=== PATIENT | female | born 1950 | race Caucasian/White ===

== ENCOUNTER 2017-09-10 10:32 | Emergency (ER) | payer OTHER ==
[2017-09-10 11:39] VITALS: BP 173/86
--- NOTE | 2017-09-10 12:01 | UC ---
Skin Complaint HPI - HPI Summary HPI Summary: 4 days of rash small vesicles on right lower leg and both arms---itchy, no evidence of infection - History of Current Complaint Chief Complaint: UCRash Time Seen by Provider: 09/10/17 11:44 Stated Complaint: SKIN COMPLAINT Hx Obtained From: Patient ?: No Onset/Duration: Sudden Onset, Lasting Days - 4 Timing: Constant Pain Intensity: 3 Pain Scale Used: 0-10 Numeric Location: Discrete Character: Pruritus, Redness Aggravating Factor(s): Nothing Alleviating Factor(s): Nothing Associated Signs & Symptoms: Positive: Rash Related History: Possible Reaction to: Environmental Exposure - Allergy/Home Medications Allergies/Adverse Reactions: Allergies Allergy/AdvReac Type Severity Reaction Status Date / Time No Known Allergies Allergy Verified 09/10/17 11:40 Review of Systems Constitutional: Negative Skin: Rash Eyes: Negative ENT: Negative Respiratory: Negative Cardiovascular: Negative Gastrointestinal: Negative Genitourinary: Negative Motor: Negative Neurovascular: Negative Musculoskeletal: Negative Neurological: Negative Psychological: Negative Is Patient Immunocompromised?: No All Other Systems Reviewed And Are Negative: Yes PMH/Surg Hx/FS Hx/Imm Hx Previously Healthy: Yes - Surgical History Surgical History: Yes Surgery Procedure, Year, and Place: C-sections x 2. Kidney stone - Family History Known Family History: Positive: None - Social History Occupation: Retired Lives: With Family Alcohol Use: Occasionally Substance Use Type: Marijuana Smoking Status (MU): Never Smoked Tobacco Physical Exam Triage Information Reviewed: Yes Appearance: Well-Appearing, No Pain Distress, Well-Nourished Vital Signs: Initial Vital Signs Temp 98.6 F 09/10/17 11:36 Pulse 73 09/10/17 11:36 Resp 18 09/10/17 11:36 BP 173/86 09/10/17 11:36 Pulse Ox 100 09/10/17 11:36 Vital Signs Reviewed: Yes Eye Exam: Normal Eyes: Positive: Conjunctiva Clear ENT Exam: Normal ENT: Positive: Normal ENT inspection, Hearing grossly normal, Pharynx normal, TMs normal, Uvula midline. Negative: Nasal congestion, Trismus, Muffled voice, Hoarse voice, Sinus tenderness Dental Exam: Normal Neck exam: Normal Neck: Positive: Supple, Nontender, No Lymphadenopathy Respiratory Exam: Normal Respiratory: Positive: Chest non-tender, Lungs clear, Normal breath sounds, No respiratory distress, No accessory muscle use Cardiovascular Exam: Normal Cardiovascular: Positive: RRR, No Murmur, Pulses Normal, Brisk Capillary Refill Musculoskeletal Exam: Normal Musculoskeletal: Positive: Strength Intact, ROM Intact, No Edema Neurological Exam: Normal Neurological: Positive: Alert, Muscle Tone Normal Psychological Exam: Normal Skin Exam: Other Skin: Positive: Other - contact rash small patches right lower leg, Course/Dx - Course Course Of Treatment: Benadryl makes her anxious---will use cool compress zyrtec , and topical steriods cream (small area of affected skin) follow rsash and blood pressure with pcp - Diagnoses Provider Diagnoses: contact dermititis, Elevated blood pressure with dx of hypertension Discharge - Sign-Out/Discharge Documenting (check all that apply): Discharge/Admit/Transfer - Discharge Plan Condition: Stable Disposition: HOME Prescriptions: Cetirizine* [ZyrTEC 10 MG TAB*] 10 mg PO DAILY #30 tab Fluocinonide 0.05% CM(NF) [Lidex 0.05% CREAM(NF)] 1 applic TOPICAL BID #1 tube Patient Education Materials: Hydrocortisone (On the skin), Cetirizine (By mouth ), Contact Dermatitis (ED), Hypertension (ED), Cold Compress or Soak (ED) Referrals: Jesus Oates NP [Nurse Practitioner] - 2 Weeks - Billing Disposition and Condition Condition: STABLE Disposition: Home
== END 2017-09-10 12:40 | disposition home or self-care (01) ==
LOC: UCEAST 10:32
DX: L25.9 Unspecified contact dermatitis, unspecified cause (principal); R03.0 Elevated blood-pressure reading, without diagnosis of hypertension; Z87.442 Personal history of urinary calculi
CPT/HCPCS: 99212; G0463

== ENCOUNTER 2018-02-13 09:49 | Emergency (ER) | payer OTHER ==
[2018-02-13] MEDS ORDERED: Meclizine TAB* 12.5 MG PO ONE (10:19)
--- NOTE | 2018-02-13 10:24 | ED ---
Dizziness - HPI Summary HPI Summary: This pt is a 67 y/o female presenting to [facility] c/o dizziness today. Pt reports dizziness began this morning but states she has had this same episode happen once before in the past. Dizziness is described as room spinning. Pt notes her dizziness is aggravated with opening her eyes and head movement. Additionally states nausea, vomiting, tingling in fingers and feet, numbness in feet. Denies fever, sore throat, ear ache, ear infections, visual changes, chest pain, SOB. Denies hx of strokes or cardiac problems. Pt normally drinks 1 beer on the weekends. - History Of Current Complaint Chief Complaint: EDDizziness Stated Complaint: DIZZINESS,TINGLING IN FINGERS Time Seen by Provider: 02/13/18 10:03 Hx Obtained From: Patient Onset/Duration: Still Present Timing: Hours Severity Currently: Moderate Character: Dizzy Aggravating Factor(s): Change In Head Position, Other - opening eyes Alleviating Factor(s): Closing Eyes Associated Signs And Symptoms: Positive: Nausea, Vomiting. Negative: Tinnitus, Chest Pain, SOB, Visual Changes, Fever, Chills, Other: - sore throat, recent ear infections - Allergies/Home Medications Allergies/Adverse Reactions: Allergies Allergy/AdvReac Type Severity Reaction Status Date / Time No Known Allergies Allergy Verified 02/13/18 09:54 PMH/Surg Hx/FS Hx/Imm Hx Cardiovascular History: Denies: Hx Coronary Artery Disease Musculoskeletal History: Denies: Hx Osteoporosis Neurological History: Denies: Hx CVA - Cancer History Hx Chemotherapy: No Hx Radiation Therapy: No - Surgical History Surgery Procedure, Year, and Place: C-sections x 2. Kidney stone Infectious Disease History: No Infectious Disease History: Denies: Traveled Outside the [place] in Last 30 Days - Family History Known Family History: Negative: Cardiac Disease, Hypertension, Diabetes - Social History Alcohol Use: Weekly Substance Use Type: Reports: Marijuana Smoking Status (MU): Never Smoked Tobacco Review of Systems Negative: Fever, Chills Negative: Sore Throat, Ear Ache, Other - ear infections Positive: Vomiting, Nausea Neurological: Other - POS: dizziness Positive: Paresthesia, Numbness All Other Systems Reviewed And Are Negative: Yes Physical Exam - Summary Physical Exam Summary: Appearance: Well appearing, no pain distress Skin: warm, dry, reflects adequate perfusion Head/face: normal Eyes: EOMI, NESTOR ENT: normal Neck: supple, nontender Respiratory: CTA, breath sounds present Cardiovascular: RRR, pulses symmetrical Abdomen: nontender, soft Musculoskeletal: normal, strength/ROM intact Neuro: normal, sensory motor intact, A&Ox3 Triage Information Reviewed: Yes Vital Signs On Initial Exam: Initial Vitals Temp Pulse Resp BP Pulse Ox 97.3 F 70 16 157/111 99 02/13/18 09:51 02/13/18 09:51 02/13/18 09:51 02/13/18 09:51 02/13/18 09:51 Vital Signs Reviewed: Yes - [place] Coma Scale Best Eye Response: 4 - Spontaneous Best Motor Response: 6 - Obeys Commands Best Verbal Response: 5 - Oriented Coma Scale Total: 15 Diagnostics - Vital Signs Vital Signs Temp Pulse Resp BP Pulse Ox 02/13/18 09:51 97.3 F 70 16 157/111 99 - Laboratory Result Diagrams: 02/13/18 10:29 02/13/18 10:29 Lab Statement: Any lab studies that have been ordered have been reviewed, and results considered in the medical decision making process. - CT Brain CT CT Interpretation Completed By: Radiologist Summary of CT Findings: IMPRESSION: No acute intracranial pathology. Dr. Esteves has reviewed this report. - EKG 10:27 Cardiac Rate: Bradycardia - at 58 bpm EKG Rhythm: Sinus Bradycardia Summary of EKG Findings: no acute changes Re-Evaluation - Re-Evaluation First Eval Re-Evaluation Time: 13:16 Comment: I reviewed all the test results with the pt. She will be discharged home. Dizzy Course/Dx - Course Assessment/Plan: Pt is a 67 y/o female who presents with dizziness today. Pt reports dizziness began this morning but she has had this same episode happen once before in the past. Pt notes her dizziness is aggravated with opening her eyes and head movement. Additionally states nausea, vomiting, tingling in fingers and feet, numbness in feet. Denies fever, sore throat, ear ache, ear infections, visual changes, chest pain, SOB. Blood work, urinalysis, brain CT, EKG obtained. Brain CT is negative. In the ED course the pt was given Meclizine. Pt will be discharged home with follow up from her PCP. She was given a prescription for Meclizine. Pt was instructed to return to the ED for any worsening or new symptoms. - Diagnoses Differential Diagnosis/HQI/PQRI: Benign Paroxysmal Positional Vertigo, Dysrhythmia, Labyrinthitis, Metabolic Abnormality Provider Diagnoses: Vertigo Discharge - Sign-Out/Discharge Documenting (check all that apply): Patient Departure - Discharge home - Discharge Plan Condition: Stable Disposition: HOME Prescriptions: Meclizine TAB* [Antivert 12.5 TAB*] 25 mg PO TID #20 tab Patient Education Materials: Vertigo (ED) Referrals: Jesus Oates NP [Primary Care Provider] - Additional Instructions: Please follow up with your primary care provider in 3 days. RETURN TO THE ED FOR ANY WORSENING OR NEW SYMPTOMS. - Billing Disposition and Condition Condition: STABLE Disposition: Home - Attestation Statements Document Initiated by Michel: Yes Documenting Scribe: Raeann Isaac Provider For Whom Michel is Documenting (Include Credential): Josh Esteves MD Scribe Attestation: Raeann Duncan scribed for Josh Esteves MD on 02/13/18 at 1345. Scribe Documentation Reviewed: Yes Provider Attestation: The documentation as recorded by the Raeann murphy accurately reflects the service I personally performed and the decisions made by , Josh Esteves MD Status of Scribe Document: Viewed
[2018-02-13 10:37] LABS: ABS Basophils 0.1 10^3/ul (0-0.2); ABS Eosinophils 0.1 10^3/ul (0-0.6); ABS Lymphocytes 1.1 10^3/ul (1.0-4.8); ABS Monocytes 0.5 10^3/ul (0-0.8); ABS Neutrophils 4.8 10^3/ul (1.5-7.7); ABS Nucleated RBC 0 10^3/ul; Eosinophil % 0.9 %; Hematocrit 41 % (35-47); Hemoglobin 13.7 g/dl (12.0-16.0); Mean Corpuscular HGB Conc 34 g/dl (31-36); Mean Corpuscular Hemoglobin 31 pg (27-31); Mean Corpuscular Volume 93 fL (80-97); Mean Platelet Volume 6.8 fL (7.4-10.4); Nucleated Red Blood Cells % 0; Platelet Count 294 10^3/ul (150-450); Red Cell Distribution Width 14 % (10.5-15); White Blood Count 6.6 10^3/ul (3.5-10.8)
[2018-02-13 10:54] LABS: INR 0.9 (0.77-1.02)
[2018-02-13 10:55] LABS: EGFR Non-African American 63.1 (>60)
[2018-02-13 13:12] LABS: Urine Appearance Clear; Urine Blood Negative (Negative); Urine Color Straw; Urine Ketones Negative (Negative); Urine Protein Negative (Negative); Urine Specific Gravity 1.005 (1.010-1.030); Urine Urobilinogen Negative (Negative)
[2018-02-13 13:43] VITALS: BP 139/73
== END 2018-02-13 13:43 | disposition home or self-care (01) ==
LOC: ED 09:49
DX: R42 Dizziness and giddiness (principal)
CPT/HCPCS: 36415; 70450; 80053; 81003; 84484; 85025; 85610; 85730; 93005; 99283; A9270-GY